=== PATIENT | male | born 1965 | race African-American/Black ===

== ENCOUNTER 2022-05-12 15:30 | Outpatient (CLI) | payer BC | END 2022-05-12 15:31 | disposition home or self-care (01) | LOC: CTENTCT 15:30 | PROVIDERS: ATTEND Otolaryngology Plastic Surgery within the Head & Neck | DX: J34.2 Deviated nasal septum (principal) | CPT/HCPCS: 70486 ==

== ENCOUNTER 2022-05-23 14:41 | Outpatient (CLI) | payer BC | END 2022-05-23 14:42 | disposition home or self-care (01) | LOC: LABBT 14:41 | PROVIDERS: ATTEND Otolaryngology Plastic Surgery within the Head & Neck | DX: Z01.818 Encounter for other preprocedural examination (principal); Z20.822 Contact with and (suspected) exposure to COVID-19 | CPT/HCPCS: 87811; 93005; 93010 ==

== ENCOUNTER 2022-05-28 05:41 | Day surgery (SDC) | payer BC ==
[2022-05-27 12:35] VITALS: BMI 30.5
[2022-05-28] MEDS ORDERED: Oxymetazoline HCl 0.05% (30 ML BOT) ONE ×3 (06:16→10:36)
[2022-05-28] MEDS ORDERED: Bacitracin Zinc Ointment 30 gm TUBE ONE (07:57)
[2022-05-28] MEDS ORDERED: Lidocaine 4% Topical Sol 50 ML BOT ONE (08:04)
[2022-05-28] MEDS ORDERED: fentaNYL Citrate/PF 100 MCG/2 ML SYRINGE ONE (08:04)
[2022-05-28] MEDS ORDERED: Lidocaine 1% (PF) 30 ML VIAL ONE (08:08)
[2022-05-28] MEDS ORDERED: EPINEPHrine 1 MG/ML AMP ONE (08:08)
[2022-05-28] MEDS ORDERED: Rocuronium Bromide 10 MG/ML (10ML VIAL) ONE (08:22)
[2022-05-28] MEDS ORDERED: Ondansetron PF 4 MG/2 ML Vial ONE (08:22)
[2022-05-28] MEDS ORDERED: Succinylcholine 200 MG/10 ml SYRINGE FS ONE (08:22)
[2022-05-28] MEDS ORDERED: Dexamethasone 20 MG/5 ML VIAL ONE (08:22)
[2022-05-28] MEDS ORDERED: PROPOFOL 200 MG/20 ML VIAL ONE (08:22)
[2022-05-28] MEDS ORDERED: Fentanyl 100 MCG/2 ML VIAL ONE (09:20)
[2022-05-28] MEDS ORDERED: hydrALAZINE 20 MG/ML VIAL ONE (10:09)
[2022-05-28] MEDS ORDERED: Hydrocodone-Acetamin 15 ML UDCUP ONE (10:51)
== END 2022-05-28 11:25 | disposition home or self-care (01) ==
LOC: SDC 05:41
PROVIDERS: ATTEND Otolaryngology Plastic Surgery within the Head & Neck
PROC: 09TL0ZZ Resection of Nasal Turbinate, Open Approach (ICD-10-PCS; principal; 2022-05-28)
PROC: 09BM0ZZ Excision of Nasal Septum, Open Approach (ICD-10-PCS; principal; 2022-05-28)
DX: J34.2 Deviated nasal septum (principal); J34.3 Hypertrophy of nasal turbinates; M95.0 Acquired deformity of nose; J34.89 Other specified disorders of nose and nasal sinuses; I10 Essential (primary) hypertension; Z79.2 Long term (current) use of antibiotics; Z79.899 Other long term (current) drug therapy; Z20.822 Contact with and (suspected) exposure to COVID-19
CPT/HCPCS: J0171; J0360; J1100; J2001; J2405; J2704; J3010

== ENCOUNTER 2024-03-06 14:31 | Inpatient (IN) | payer BC ==
[2024-03-06] MEDS ORDERED: Ondansetron ODT 4 MG TAB PO PRN (14:46)
[2024-03-06] MEDS ORDERED: Morphine 4 MG/ML VIAL SLOW IVP PRN (14:46)
[2024-03-06] MEDS ORDERED: Ondansetron PF 4 MG/2 ML Vial IVP PRN (14:46)
[2024-03-06] MEDS ORDERED: hydrALAZINE 20 MG/ML VIAL SLOW IVP PRN (14:46)
[2024-03-06] MEDS ORDERED: Ketorolac Tromethamine 30 MG (1 mL) VIAL IVP PRN (14:51)
[2024-03-06 17:45] VITALS: BMI 31.1
[2024-03-06] MEDS ORDERED: Indomethacin 50 MG SUPP PR SCH (17:45)
[2024-03-06] MEDS: Oxazepam 10 MG CAP PO SCH (18:04)
[2024-03-06] MEDS: LevoFLOXacin 500 mg/D5W 500 MG in Premix 1 BAG IVPB SCH (18:08)
[2024-03-06] MEDS: Folic Acid 1 MG TAB PO SCH (18:08)
[2024-03-06] MEDS: traMADol HCl 50 MG TAB PO SCH (18:09)
[2024-03-06] MEDS: Multivit, Therapeutic 1 TAB PO SCH (18:09)
[2024-03-06] MEDS: Thiamine HCl 200 MG/2 ML VIAL SLOW IVP SCH (18:10)
[2024-03-06] MEDS: Sodium Chloride 0.9% 1,000 ML IV SCH (18:10)
[2024-03-06] MEDS: Pantoprazole DR 40 MG TAB PO SCH (20:46)
[2024-03-06] MEDS: Enoxaparin 40 MG (0.4 mL) SYRINGE SC SCH (20:50)
[2024-03-07 06:07] LABS: #Basophils Less than 0.03 10x3/uL (0.0-0.2); #Eosinphils Less than 0.03 10x3/uL (0.0-0.7); %Basophils 0.1 % (0.0-1.0); %Lymphocytes 2.9 % (21.0-51.0); %Neutrophils 78.1 % (42.0-75.0); Hematocrit 25.2 % (42.0-52.0); Hemoglobin 7.8 g/dL (14.0-18.0); Mean Corpuscular Hemoglobin 19.1 pg (27.0-31.0); Mean Corpuscular Volume 61.8 fL (78.0-98.0); Mean Platelet Volume 9.6 fL (7.4-10.4); Platelet Count 211 10x3/uL (130-400); RBC Distribution Width 20.8 % (11.5-14.5); Red Blood Cell (RBC) Count 4.08 mill/uL (4.70-6.10)
[2024-03-07 06:20] LABS: Phosphorus 2.7 mg/dL (2.3-4.7)
[2024-03-07 06:23] LABS: ALT (SGPT) 147 U/L (8-55); AST (SGOT) 171 U/L (5-34); Albumin 2.6 g/dL (3.5-5.0); Alkaline Phosphatase 70 U/L (40-110); Anion Gap 10 mmol/L (10-20); BUN (Urea Nitrogen) 17 mg/dL (8.4-25.7); Bilirubin, Total 1.4 mg/dL (0.2-1.2); Calc. Creatinine Clearance 137 mL/min (70-130); Calcium 8.2 mg/dL (7.8-10.44); Carbon Dioxide 21 mmol/L (22-29); Chloride 111 mmol/L (98-107); Estimated GFR 100; Globulin 3.2 g/dL (2.4-3.5); Glucose 94 mg/dL (70-105); Lipase 13 U/L (8-78); Magnesium 1.8 mg/dL (1.6-2.6); Potassium 4.4 mmol/L (3.5-5.1); Protein, Total 5.8 g/dL (6.0-8.3); Sodium 138 mmol/L (136-145)
[2024-03-07 07:48] VITALS: TEMP 97.6
[2024-03-07] MEDS ORDERED: Indomethacin 50 MG SUPP ONE (10:23)
[2024-03-07] MEDS ORDERED: Glucagon 1 MG/ML KIT ONE (10:24)
[2024-03-07] MEDS ORDERED: Iopamidol 15 ML ONE (10:24)
[2024-03-07] MEDS ORDERED: Rocuronium Bromide 10 MG/ML (10ML VIAL) ONE (10:36)
[2024-03-07] MEDS ORDERED: Ondansetron PF 4 MG/2 ML Vial ONE (10:36)
[2024-03-07] MEDS ORDERED: Dexamethasone 20 MG/5 ML VIAL ONE (10:36)
[2024-03-07] MEDS ORDERED: Lidocaine 1% PF 5 ML VIAL ONE (10:36)
[2024-03-07] MEDS ORDERED: Midazolam HCl 2 mg/2 ml Vial ONE (10:36)
[2024-03-07] MEDS ORDERED: fentaNYL PF 100 MCG/2 ML SYRINGE ONE (10:36)
[2024-03-07] MEDS ORDERED: PROPOFOL 40 ML ONE (10:36)
[2024-03-07] MEDS ORDERED: PHENYLEPHRINE-NS 100 MCG/ML 10 ML SYRINGE ONE (10:59)
[2024-03-07] MEDS ORDERED: SUGAMMADEX SODIUM 200 MG/2 ML VIAL ONE (11:16)
[2024-03-07] MEDS: Folic Acid 1 MG TAB PO SCH (11:34)
[2024-03-07] MEDS: Multivit, Therapeutic 1 TAB PO SCH (11:35)
[2024-03-07] MEDS: Oxazepam 10 MG CAP PO SCH (11:35)
[2024-03-07] MEDS: Acetaminophen 500 MG TAB PO SCH (13:54)
[2024-03-07 16:48] VITALS: BP 148/97
[2024-03-09] MEDS ORDERED: Thiamine 100 MG TAB PO SCH (09:00)
== END 2024-03-07 16:50 | disposition home or self-care (01) | DRG 446 ==
LOC: SURG A 16:50
PROVIDERS: ADMIT Surgery; ATTEND Surgery
PROC: 0F798ZZ Dilation of Common Bile Duct, Via Natural or Artificial Opening Endoscopic (ICD-10-PCS; principal; 2024-03-07)
PROC: BF10YZZ Fluoroscopy of Bile Ducts using Other Contrast (ICD-10-PCS; 2024-03-07)
DX: K81.9 Cholecystitis, unspecified (principal); R93.2 Abnormal findings on diagnostic imaging of liver and biliary tract; I10 Essential (primary) hypertension; F10.20 Alcohol dependence, uncomplicated; D64.9 Anemia, unspecified; Z79.899 Other long term (current) drug therapy; Z71.41 Alcohol abuse counseling and surveillance of alcoholic; Z90.49 Acquired absence of other specified parts of digestive tract
CPT/HCPCS: 36415; 74330; 80053; 83690; 83735; 84100; 85025; J1100; J1611; J1956; J2250; J2405; J2704; J3411; J7050; Q9967